=== PATIENT | female | born 1970 | race African-American/Black ===

== ENCOUNTER 2017-05-06 15:10 | Emergency (ER) | payer OTHER ==
[2017-05-06 15:16] VITALS: BP 122/60; PULSE 60; TEMP 98.6; BMI 34.7
--- NOTE | 2017-05-06 16:13 | PDOC ---
History of Present Illness - General Chief Complaint: Injury Stated Complaint: LT FOOT INJURY Time Seen by Provider: 05/06/17 15:30 History Source: Patient Exam Limitations: No Limitations - History of Present Illness Initial Comments: 05/06/17 16:16 stubbed toe into wall 2 days ago, c/o pain and swelling Occurred: reports: just prior to arrival Pain Location: reports: none Past History - Travel Traveled outside of the country in the last 30 days: No Close contact w/someone who was outside of country & ill: No - Past Medical History Allergies/Adverse Reactions: Allergies Allergy/AdvReac Type Severity Reaction Status Date / Time No Known Allergies Allergy Verified 05/06/17 15:13 Home Medications: Ambulatory Orders NK [No Known Home Medication] 03/29/16 Other medical history: denies - Immunization History Immunization Up to Date: Yes - Psycho/Social/Smoking Cessation Hx Anxiety: No Suicidal Ideation: No Smoking History: Never smoked Number of Cigarettes Smoked Daily: 0 Cigars Per Day: 0 Hx Alcohol Use: No Drug/Substance Use Hx: No Review of Systems - Review of Systems Able to Perform ROS?: Yes Is the patient limited Kyrgyz proficient: Yes Constitutional: Yes: Symptoms Reported, See HPI, Malaise HEENTM: No: Symptoms Reported Musculoskeletal: Yes: Symptoms Reported, See HPI, Other (pain and swelling ) Integumentary: Yes: Symptoms Reported, See HPI Neurological: Yes: Symptoms reported All Other Systems: Reviewed and Negative *Physical Exam - Vital Signs Last Vital Signs Temp Pulse Resp BP Pulse Ox 98.6 F 60 18 122/60 98 05/06/17 15:13 05/06/17 15:13 05/06/17 15:13 05/06/17 15:13 05/06/17 15:13 - Physical Exam General Appearance: Yes: Nourished, Appropriately Dressed, Apparent Distress HEENT: positive: ERIN, Normal ENT Inspection, TMs Normal, Pharynx Normal Neck: positive: Supple. 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, Fully Oriented, Alert, Normal Mood/ Affect, Motor Strength 03/23 ED Treatment Course - RADIOLOGY Radiology Studies Ordered: Category Date Time Status TOE(S) LEFT [RAD] Stat Radiology 05/06/17 15:35 Taken Progress Note - Progress Note Progress Note: toe contusion, no fx/ dx- cast shoe placed *DC/Admit/Observation/Transfer Diagnosis at time of Disposition: Contusion of toe of left foot Qualifiers: Encounter type: initial encounter Toe: great toe Damage to nail status: without damage Qualified Code(s): S90.112A - Contusion of left great toe without damage to nail, initial encounter - Discharge Dispostion Disposition: HOME Condition at time of disposition: Stable Admit: No - Patient Instructions Printed Discharge Instructions: DI for Contusion Additional Instructions: Rest, ice to area on and off for 15 minutes 4-6 times a day Avoid heavy lifting or exercise until pain and swelling is resolved or until further directed Keep area highly elevated to reduce swelling Use splints/Jackson wrap as directed Followup with orthopedist in one to 2 days if not improving, if significantly improved may wait one week for followup with orthopedist May use ibuprofen 2-200 mg tablets every 6 hours as needed for pain - Post Discharge Activity Work/School Note: Back to Work
== END 2017-05-06 16:22 | disposition home or self-care (01) ==
LOC: JERFT 15:10
DX: S90.122A Contusion of left lesser toe(s) without damage to nail, initial encounter (principal); W22.01XA Walked into wall, initial encounter; Y93.89 Activity, other specified; Y92.89 Other specified places as the place of occurrence of the external cause; Y99.8 Other external cause status
CPT/HCPCS: 73660-TC; 99281-25

== ENCOUNTER 2017-12-10 16:58 | Emergency (ER) | payer OTHER ==
[2017-12-10 17:09] VITALS: BP 129/65; PULSE 67; TEMP 99.5; BMI 35.5
--- NOTE | 2017-12-10 17:09 | PDOC ---
Rapid Medical Evaluation Chief Complaint: Cold Symptoms Time Seen by Provider: 12/10/17 17:05 Medical Evaluation: Allergies Allergy/AdvReac Type Severity Reaction Status Date / Time No Known Allergies Allergy Verified 12/10/17 17:05 12/10/17 17:05 The patient presents with a chief complaint of: [Chills, cough, fever] I have performed a brief in-person evaluation of this patient. Pertinent physical exam findings: vss, [Lungs clear, RRR, abdoman soft, nontender, nondistended. ] I have ordered the following: [Nothing. ] The patient will proceed to the ED for further evaluation. Discharge Disposition - Diagnosis Fever Qualifiers: Fever type: unspecified Qualified Code(s): R50.9 - Fever, unspecified - Referrals - Patient Instructions - Post Discharge Activity
--- NOTE | 2017-12-10 17:31 | PDOC ---
History of Present Illness - General Chief Complaint: Cold Symptoms Stated Complaint: COLD SYMPTOMS Time Seen by Provider: 12/10/17 17:05 History Source: Patient Exam Limitations: No Limitations - History of Present Illness Initial Comments: 12/10/17 17:26 Patient is a 47 y/o female with no significant medical history, fever, cough, generalized pain. 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 Timing/Duration: reports: other (sunday at 2 pm. ) Severity: reports: moderate Possible Cause: Yes: illness exposure Modifying Factors: improves with: coughing Associated Symptoms: reports: cough, fever/chills Past History - Past Medical History Allergies/Adverse Reactions: Allergies Allergy/AdvReac Type Severity Reaction Status Date / Time No Known Allergies Allergy Verified 12/10/17 17:05 Home Medications: Ambulatory Orders Oseltamivir Phosphate [Tamiflu -] 75 mg PO BID #10 capsule 12/10/17 COPD: No - Immunization History Immunization Up to Date: Yes - Suicide/Smoking/Psychosocial Hx Smoking History: Never smoked Have you smoked in the past 12 months: No Number of Cigarettes Smoked Daily: 0 Cigars Per Day: 0 Information on smoking cessation initiated: No Hx Alcohol Use: No Drug/Substance Use Hx: No Substance Use Type: None Review of Systems - Review of Systems Constitutional: Yes: Chills, Fever HEENTM: No: Symptoms Reported Respiratory: Yes: Cough Cardiac (ROS): No: Symptoms Reported ABD/GI: No: Symptoms Reported : No: Symptoms Reported Musculoskeletal: No: Symptoms Reported Integumentary: No: Symptoms Reported, Erythema, Rash Neurological: No: Symptoms reported Hematologic/Lymphatic: No: Symptoms Reported All Other Systems: Reviewed and Negative *Physical Exam - Vital Signs Last Vital Signs Temp Pulse Resp BP Pulse Ox 99.5 F 67 18 129/65 100 12/10/17 17:05 12/10/17 17:05 12/10/17 17:05 12/10/17 17:05 12/10/17 17:05 - Physical Exam General Appearance: Yes: Appropriately Dressed. No: Apparent Distress HEENT: positive: ERIN, Normal ENT Inspection, Normal Voice, Symmetrical, TMs Normal, Pharynx Normal Neck: positive: Trachea midline. negative: Tender, Lymphadenopathy (R), Lymphadenopathy (L), Tender lateral, Tender midline Respiratory/Chest: positive: Lungs Clear, Normal Breath Sounds. negative: Respiratory Distress, Accessory Muscle Use Cardiovascular: positive: Regular Rhythm, Regular Rate Gastrointestinal/Abdominal: positive: Normal Bowel Sounds, Soft. negative: Tender Lymphatic: negative: Adenopathy Musculoskeletal: positive: Normal Inspection Integumentary: positive: Normal Color, Dry. negative: Rash Neurologic: positive: Alert, Normal Mood/Affect, Normal Response, Motor Strength 5/5 Medical Decision Making - Medical Decision Making 12/10/17 17:29 A/P : Exposure to influenza, influenza type illness, fever, chills, cough, generalized pain. Will discharge patient on Tamiflu. Treat fever with motrin and tylenol. Increase fluids. 12/10/17 17:30 *DC/Admit/Observation/Transfer Diagnosis at time of Disposition: Influenza-like illness Fever Qualifiers: Fever type: unspecified Qualified Code(s): R50.9 - Fever, unspecified - Discharge Dispostion Disposition: HOME Condition at time of disposition: Stable Admit: No - Prescriptions Prescriptions: Oseltamivir Phosphate [Tamiflu -] 75 mg PO BID #10 capsule - Referrals Referrals: STAFF,NOT ON [Primary Care Provider] - - Patient Instructions Printed Discharge Instructions: Influenza Additional Instructions: Increase fluids Please knowthat you are highly contagious. Treat the fever with motrin or tylenol. If symptoms worsen , fainting, inability to eat or drink return to the ER. - Post Discharge Activity Forms/Work/School Notes: Back to Work
== END 2017-12-10 19:27 | disposition home or self-care (01) ==
LOC: JERFT 16:58
DX: J11.1 Influenza due to unidentified influenza virus with other respiratory manifestations (principal)
CPT/HCPCS: 99281-25

== ENCOUNTER 2017-12-15 10:07 | Emergency (ER) | payer OTHER ==
[2017-12-15 10:14] VITALS: BP 107/74; PULSE 57; TEMP 98.5; BMI 35.0
--- NOTE | 2017-12-15 11:16 | PDOC ---
History of Present Illness - General Chief Complaint: Rash Stated Complaint: RASH (ALLERGIC RXN) History Source: Patient Exam Limitations: No Limitations - History of Present Illness Initial Comments: 12/15/17 11:34 Patient was seen here 5 days ago and was found to be positive for flu. She was prescribed at that time Tamiflu. She picked it up on Sunday and started the doses for Sunday, Sunday, . night she noted that her right arm was having hives and itching. Denies any further fevers. Feels better in regards to the flu. However she noted this rash and stopped taking the Tamiflu on night. Denies any numbness, tingling, bleeding, weeping. Noted to only have the hives from the upper arm to the hand. There is some minor swelling. There is some redness. Past History - Past Medical History Allergies/Adverse Reactions: Allergies Allergy/AdvReac Type Severity Reaction Status Date / Time No Known Allergies Allergy Verified 12/15/17 10:14 Home Medications: Ambulatory Orders Oseltamivir Phosphate [Tamiflu -] 75 mg PO BID #10 capsule 12/10/17 Diphenhydramine HCl [Benadryl -] 25 mg PO Q6H #28 capsule 12/15/17 COPD: No - Immunization History Immunization Up to Date: Yes - Suicide/Smoking/Psychosocial Hx Smoking History: Never smoked Have you smoked in the past 12 months: No Number of Cigarettes Smoked Daily: 0 Cigars Per Day: 0 Hx Alcohol Use: No Drug/Substance Use Hx: No Substance Use Type: None Review of Systems - Review of Systems Able to Perform ROS?: Yes Comments:: 12/15/17 11:36 General statement: Hematology: neg history of bleeding/blood thinners Skin: Neg for lesions, rash, bruising. HEENT: Neg symptoms Respiratory: Neg SOB or difficulty in breathing Cardiac: Neg chest pain GI: Neg pain, n/v : Neg problems on voiding MS: Neg for joint pain/stiffness, no edema Neuro: Neg for LOC, weakness, Endocrine: Neg for excess thirst/hunger, cold/heat intolerance, excess sweating Allergies: Neg for allergies now going to label Tamiflu as an ALLERGY *Physical Exam - Vital Signs Last Vital Signs Temp Pulse Resp BP Pulse Ox 98.5 F 57 L 18 107/74 98 12/15/17 10:11 12/15/17 10:11 12/15/17 10:11 12/15/17 10:11 12/15/17 10:11 - Physical Exam Comments: 12/15/17 11:37 General Appearance: This well appearing V/S: hemodynamically stable, afebrile Skin: WNL of pt's skin color, no signs of pallor, mottling, cyanosis with the exception of her right arm from her shoulder down to her wrist noted to be blotchy, red, hives. She has been scratching and noted to have some scratch squires. There is no bleeding, weeping, pustules. She is able to move all of her extremities. Good hand grasp. No numbness or tingling. Head:symmetrical Eyes: EOM's intact, PERRLA Ears: denies pain Nose: patent Throat: lips, teeth, gums, tongue, buccal mucos pink and moist Lungs: Chest symmetry equal. Cap refill <3 seconds. Lung sounds clear Cardiac: PMI at R 4MCL space, pos S1 and S2, regular rate. Abdomen: Soft, round, nontender : Not observed Muscularskeletal: Gait steady, ambulated in to ER, no edema +PMS Neuro: AAOx3, cognitively intact, speech clear and appropriate. Medical Decision Making - Medical Decision Making 12/15/17 11:37 Patient was seen and examined. Patient noted to have a rash and assume that this is due to her Tamiflu that she recently was put on. She had taken 3 days worth of Tamiflu. She has now stopped it and I have explained that she should use Benadryl for the itching and hives. I have updated her ALLERGY is to be noted to have Tamiflu ALLERGY. *DC/Admit/Observation/Transfer Diagnosis at time of Disposition: Rash - Discharge Dispostion Disposition: HOME Condition at time of disposition: Good Admit: No - Prescriptions Prescriptions: Diphenhydramine HCl [Benadryl -] 25 mg PO Q6H #28 capsule - Referrals Referrals: ON STAFF,NOT [Primary Care Provider] - - Patient Instructions Printed Discharge Instructions: DI for Hives Additional Instructions: Discharge instructions 1. Please follow up with your primary physician within the next few days and explain that you have been seen here in the Emergency Room. 2. If you experience any worsening of symptoms, please return to the ER 3. Rest, take benadryl as needed for skin itch 4. Drink plenty of water - Post Discharge Activity
== END 2017-12-15 11:20 | disposition home or self-care (01) ==
LOC: JERFT 10:07
DX: L50.0 Allergic urticaria (principal); T37.5X5A Adverse effect of antiviral drugs, initial encounter
CPT/HCPCS: 99281-25

== ENCOUNTER 2017-12-31 20:50 | Emergency (ER) | payer OTHER ==
[2017-12-31 21:06] VITALS: BP 114/90; PULSE 83; TEMP 99.8; BMI 34.7
--- NOTE | 2017-12-31 21:07 | PDOC ---
Rapid Medical Evaluation Time Seen by Provider: 12/31/17 21:01 Medical Evaluation: Allergies Allergy/AdvReac Type Severity Reaction Status Date / Time oseltamivir [From Tamiflu] AdvReac Mild Rash Verified 12/15/17 11:39 12/31/17 21:02 The patient presents with a chief complaint of: Was diagnosed with flu three weeks ago, Now with fever, sore throat, headache, diarrhea, vomiting and joint pains. No meds prior to arrival. Afebrile. No n/v/d. Temp 99.8, took Aleve at 7 pm. I have performed a brief in-person evaluation of this patient. Pertinent physical exam findings:Lungs clear, dry oral mucus membranes, other physical examination is unremarkable. I have ordered the following: rapid strep. The patient will proceed to the ED for further evaluation. Discharge Disposition - Diagnosis Fever - Referrals - Patient Instructions - Post Discharge Activity
[2017-12-31] MEDS ORDERED: SODIUM CHLORIDE 1,000 ML IV STA (22:00)
[2017-12-31] MEDS ORDERED: ONDANSETRON 4 MG/2 ML VIAL IVPUSH ONE (22:00)
[2017-12-31] MEDS ORDERED: KETOROLAC TROMETHAMINE 30 MG/1 ML VIAL IVPUSH ONE (22:00)
--- NOTE | 2017-12-31 22:01 | PDOC ---
History of Present Illness - General Chief Complaint: Nausea/Vomiting Stated Complaint: BODY PAIN Time Seen by Provider: 12/31/17 21:01 History Source: Patient - History of Present Illness Initial Comments: 12/31/17 22:21 47 year old female with generalized bodyaches, joint pain,NVD, fever/chills, throat pain since this afternoon. patient recently seen in the ED for flu like symptoms started on tamiflu with allergic reaction stopped after 3 days of use. Patient denies chest pain, headache, abdominal pain, urinary symptoms, COugh, URI symptoms. Past History - Past Medical History Allergies/Adverse Reactions: Allergies Allergy/AdvReac Type Severity Reaction Status Date / Time oseltamivir [From Tamiflu] AdvReac Mild Rash Verified 12/31/17 21:06 Home Medications: Ambulatory Orders Oseltamivir Phosphate [Tamiflu -] 75 mg PO BID #10 capsule 12/10/17 Diphenhydramine HCl [Benadryl -] 25 mg PO Q6H #28 capsule 12/15/17 COPD: No - Immunization History Immunization Up to Date: Yes - Suicide/Smoking/Psychosocial Hx Smoking History: Never smoked Have you smoked in the past 12 months: No Number of Cigarettes Smoked Daily: 0 Cigars Per Day: 0 Information on smoking cessation initiated: No Hx Alcohol Use: No Drug/Substance Use Hx: No Substance Use Type: None Review of Systems - Review of Systems Able to Perform ROS?: Yes Is the patient limited Sinhala proficient: No Constitutional: Yes: Chills, Fever HEENTM: Yes: Throat Pain. No: Symptoms Reported, See HPI, Eye Pain, Blurred Vision, Tearing, Recent change in vision, Double Vision, Cataracts, Ear Pain, Ocular Prothesis, Ear Discharge, Nose Pain, Nose Congestion, Tinnitus, Nose Bleeding, Hearing Loss, Throat Swelling, Mouth Pain, Dental Problems, Difficulty Swallowing, Mouth Swelling, Other Respiratory: No: Symptoms reported, See HPI, Cough, Orthopnea, Shortness of Breath, SOB with Exertion, SOB at Rest, Stridor, Wheezing, Productive cough, Hemoptysis, Other Cardiac (ROS): No: Symptoms Reported, See HPI, Chest Pain, Edema, Irregular Heart Rate, Lightheadedness, Palpitations, Syncope, Chest Tightness, Other ABD/GI: Yes: Diarrhea, Nausea, Vomiting : No: Symptoms Reported, See HPI, Burning, Dysuria, Discharge, Frequency, Flank Pain, Hematuria, Incontinence, Pain, Urgency, Testicular Mass, Testicular Swelling, Lesions, Testicular Pain, Other Neurological: No: Symptoms reported, See HPI, Headache, Numbness, Paresthesia, Pre-Existing Deficit, Seizure, Tingling, Tremors, Weakness, Unsteady Gait, Ataxia, Dizziness, Other *Physical Exam - Vital Signs Last Vital Signs Temp Pulse Resp BP Pulse Ox 99.8 F H 83 20 114/90 98 12/31/17 21:01 12/31/17 21:01 12/31/17 21:01 12/31/17 21:01 12/31/17 21:01 - Physical Exam General Appearance: Yes: Appropriately Dressed, Mild Distress Respiratory/Chest: positive: Lungs Clear, Normal Breath Sounds Gastrointestinal/Abdominal: positive: Normal Bowel Sounds, Soft. negative: Tender Musculoskeletal: positive: Normal Inspection. negative: CVA Tenderness Extremity: positive: Normal Capillary Refill, Normal Inspection, Normal Range of Motion Integumentary: positive: Normal Color, Dry, Warm Neurologic: positive: Fully Oriented, Alert, Normal Mood/Affect Heart Score/ECG Review - ECG Intrepretation Rhythm: Regular Rhythm Comment:: 01/01/18 07:18 sinus rhythm with short VA : 63 bpm, nonspecific T wave prolonged Qt ED Treatment Course - LABORATORY CBC & Chemistry Diagram: 12/31/17 21:58 12/31/17 21:58 - ADDITIONAL ORDERS Additional order review: 12/31/17 21:13 Group A Strep Rapid Antigen - Final Throat Medical Decision Making - Medical Decision Making 12/31/17 21:00 A: viral gastroenteritis P: CBC CMp UA IVF pain control 12/31/17 23:38 patient reports feeling better. will d/c home with supportive care. *DC/Admit/Observation/Transfer Diagnosis at time of Disposition: Viral gastroenteritis Fever Qualifiers: Fever type: unspecified Qualified Code(s): R50.9 - Fever, unspecified - Discharge Dispostion Disposition: HOME - Referrals - Patient Instructions Printed Discharge Instructions: DI for Vomiting -- Adult Additional Instructions: drink plenty of fluids. follow up with your doctor as soon as possible. take tylenol/ ibuprofen every 6 hours as needed for bodyaches/ fever return to the ED if symptoms worsen. - Post Discharge Activity Forms/Work/School Notes: Back to Work
[2017-12-31] MEDS ORDERED: ONDANSETRON 4 MG/2 ML VIAL ONE (22:07)
[2017-12-31] MEDS ORDERED: KETOROLAC TROMETHAMINE 30 MG/1 ML VIAL ONE (22:07)
[2017-12-31] MEDS ORDERED: ACETAMINOPHEN 325 MG TABLET (FP) PO ONE (22:21)
[2017-12-31 22:26] LABS: BASO % 0.2 % (0-2.0); EOS % 0.3 % (0-4.5); HEMATOCRIT 37.7 % (32.4-45.2); HEMOGLOBIN 12.5 GM/dL (10.7-15.3); LYMPH % 7.5 % (8-40); MCHC 33.3 g/dl (32.0-36.0); MEAN CELL VOLUME 81.2 fl (80-96); MEAN PLT VOLUME 9.3 fl (7.5-11.1); MONO % 7.9 % (3.8-10.2); NEUT % 84.1 % (42.8-82.8); PLATELET COUNT 250 K/MM3 (134-434); RBC 4.64 M/mm3 (3.60-5.2); RDW 13.6 % (11.6-15.6)
[2017-12-31 22:49] LABS: ALBUMIN 3.7 g/dl (3.4-5.0); ALK PHOS 110 U/L (45-117); ANION GAP 9 (8-16); BLOOD UREA NITROGEN 13 mg/dL (7-18); CALCIUM 8.1 mg/dL (8.5-10.1); CHLORIDE 102 mmol/L (98-107); CO2 23 mmol/L (21-32); CREATININE 0.9 mg/dL (0.55-1.02); GLUCOSE,RANDOM 87 mg/dL (74-106); LIPASE 80 U/L (73-393); POTASSIUM 4.1 mmol/L (3.5-5.1); SGOT/AST 23 U/L (15-37); SGPT/ALT 28 U/L (12-78); SODIUM 134 mmol/L (136-145); TOT PROT 7.8 g/dl (6.4-8.2)
[2017-12-31 23:30] LABS: URINE APPEARANCE CLEAR; URINE BILIRUBIN NEGATIVE (NEGATIVE); URINE BLOOD 2+ (NEGATIVE); URINE COLOR YELLOW; URINE GLUCOSE (UA) NEGATIVE (NEGATIVE); URINE KETONE 1+ (NEGATIVE); URINE LEUK ESTERASE TRACE (NEGATIVE); URINE NITRITE NEGATIVE (NEGATIVE); URINE PROTEIN NEGATIVE (NEGATIVE); URINE UROBILINOGEN NEGATIVE mg/dL (0.2-1.0)
[2017-12-31 23:33] LABS: EPI CELLS RARE /HPF (FEW); URINE MUCUS RARE
--- NOTE | 2018-01-01 16:42 | EKG ---
Test Reason : Blood Pressure : / mmHG Vent. Rate : 063 BPM Atrial Rate : 063 BPM P-R Int : 110 ms QRS Dur : 076 ms QT Int : 512 ms P-R-T Axes : 020 -04 015 degrees QTc Int : 523 ms SINUS RHYTHM WITH SHORT [place] LOW VOLTAGE QRS NONSPECIFIC T WAVE ABNORMALITY PROLONGED QT ABNORMAL ECG NO PREVIOUS ECGS AVAILABLE Confirmed by MD Marvin, John ([id number]) on 01/01/2018 4:42:02 PM Referred By: Confirmed By:John Wong MD
== END 2017-12-31 23:47 | disposition home or self-care (01) ==
LOC: JER 20:50
PROC: 3E0333Z Introduction of Anti-inflammatory into Peripheral Vein, Percutaneous Approach (ICD-10-PCS; principal; 2017-12-31)
PROC: 3E033GC Introduction of Other Therapeutic Substance into Peripheral Vein, Percutaneous Approach (ICD-10-PCS; 2017-12-31)
DX: A08.4 Viral intestinal infection, unspecified (principal); B97.89 Other viral agents as the cause of diseases classified elsewhere
CPT/HCPCS: 36415; 80053; 81003; 81015; 83690; 84703; 85025; 87070; 87430; 93005; 93010; 99282-25

== ENCOUNTER 2019-04-30 12:14 | Observation (INO) | payer OTHER ==
--- NOTE | 2019-04-30 12:16 | PDOC ---
Rapid Medical Evaluation Time Seen by Provider: 04/30/19 12:15 Medical Evaluation: Allergies Allergy/AdvReac Type Severity Reaction Status Date / Time oseltamivir [From Tamiflu] AdvReac Mild Rash Verified 12/31/17 21:06 04/30/19 12:16 I have performed a brief in-person evaluation of this patient. The patient presents with a chief complaint of: Chest pain, dizziness Pertinent physical exam findings: HR-49 Lungs CTAB. RRR. No m/r/g. No focal deficits. Gait steady. I have ordered the following: cardiac w/u The patient will proceed to the ED for further evaluation. 04/30/19 12:22 Discharge Disposition - Diagnosis Chest pain - Referrals - Patient Instructions - Post Discharge Activity
[2019-04-30 13:05] LABS: BASO % 0.8 % (0-2.0); EOS % 1.9 % (0-4.5); HEMATOCRIT 35.1 % (32.4-45.2); HEMOGLOBIN 11.6 GM/dL (10.7-15.3); LYMPH % 23.3 % (8-40); MCH 27.5 pg (25.7-33.7); MCHC 33.2 g/dl (32.0-36.0); MEAN CELL VOLUME 82.9 fl (80-96); MEAN PLT VOLUME 9.4 fl (7.5-11.1); MONO % 10.7 % (3.8-10.2); NEUT % 63.3 % (42.8-82.8); PLATELET COUNT 244 K/MM3 (134-434); RBC 4.23 M/mm3 (3.60-5.2); RDW 14.8 % (11.6-15.6); WHITE BLOOD COUNT 7.9 K/mm3 (4.0-10.0)
[2019-04-30 13:13] LABS: INR 1.07 (0.83-1.09); PROTHROMBIN TIME (PATIENT) 12.6 SEC (9.7-13.0)
[2019-04-30 13:16] LABS: URINE APPEARANCE CLEAR; URINE BILIRUBIN NEGATIVE (NEGATIVE); URINE COLOR YELLOW; URINE GLUCOSE (UA) NEGATIVE (NEGATIVE); URINE KETONE NEGATIVE (NEGATIVE); URINE LEUK ESTERASE NEGATIVE (NEGATIVE); URINE NITRITE NEGATIVE (NEGATIVE); URINE PROTEIN NEGATIVE (NEGATIVE); URINE UROBILINOGEN 0.2 mg/dL (0.2-1.0)
[2019-04-30 13:31] LABS: ALBUMIN 3.4 g/dl (3.4-5.0); ALK PHOS 98 U/L (45-117); ANION GAP 3 MMOL/L (8-16); BILIRUBIN,TOTAL 0.7 mg/dL (0.2-1); BLOOD UREA NITROGEN 11.1 mg/dL (7-18); CALCIUM 8.5 mg/dL (8.5-10.1); CHLORIDE 107 mmol/L (98-107); CO2 26 mmol/L (21-32); CREATININE 0.9 mg/dL (0.55-1.3); GLUCOSE,RANDOM 83 mg/dL (74-106); MAGNESIUM 2.2 mg/dL (1.8-2.4); POTASSIUM 4.1 mmol/L (3.5-5.1); SGOT/AST 20 U/L (15-37); SGPT/ALT 26 U/L (13-61); SODIUM 136 mmol/L (136-145); TOT PROT 7.4 g/dl (6.4-8.2)
[2019-04-30 13:44] LABS: HCG,QUALITATIVE URINE Negative
[2019-04-30] MEDS ORDERED: ONDANSETRON 4 MG/2 ML VIAL IVPB ONE (13:51)
--- NOTE | 2019-04-30 13:58 | PDOC ---
History of Present Illness - General Chief Complaint: Chest Pain Stated Complaint: CHEST PAIN Time Seen by Provider: 04/30/19 12:15 - History of Present Illness Initial Comments: 04/30/19 13:52 PCP: Dr. Tom. Patient is a 48 year old female came in to the ED with the chief complaint of dizziness and chest pain. As per the patient, she had dizziness a week ago, fell and landed on her right hand, didn't lose consciousness. Her son heard a loud noise, saw her on the floor, helped her get up and lay on bed. Since then she has been getting dizziness on/off, associated with headache and chronic neck pain. No vertigo. She states she started having left sided chest pain 5 days ago, located in the left side, 8-9/10 in intensity, sharp/pricking type, non radiating, associated with shortness of breath. Chest pain usually starts while at rest, lasting for about 15-20 mins. It has been progressively getting worse, duration has been increasing along with shortness of breath even when she walks few steps, associated with nausea. She usually exercises 4 times/day; does boot camp once a week. However due to chest pain/sob, she hasn't been able to exercise. She called her PCP today who recommended her to come to the ED for evaluation. Denies fever, chills, rigors, sweating, no LOC, no seizures. Had lose stool 3 episodes overnight, watery, no blood. Bladder habit normal. Past medical history: None Allergies: Tamiflu Past surgical history: Tubal ligation Social Lives at home with her and kids Smoking:Denies Alcohol: Occasional, last drink 4 days ago. 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 Past History - Travel Traveled outside of the country in the last 30 days: No Close contact w/someone who was outside of country & ill: No - Past Medical History Allergies/Adverse Reactions: Allergies Allergy/AdvReac Type Severity Reaction Status Date / Time oseltamivir [From Tamiflu] AdvReac Mild Rash Verified 04/30/19 12:16 Home Medications: Ambulatory Orders NK [No Known Home Medication] 04/30/19 COPD: No - Immunization History Immunization Up to Date: Yes - Suicide/Smoking/Psychosocial Hx Smoking History: Never smoked Have you smoked in the past 12 months: No Number of Cigarettes Smoked Daily: 0 Cigars Per Day: 0 Hx Alcohol Use: No Drug/Substance Use Hx: No Substance Use Type: None Review of Systems - Review of Systems Able to Perform ROS?: Yes Is the patient limited [place]ian proficient: No *Physical Exam - Vital Signs Last Vital Signs Temp Pulse Resp BP Pulse Ox 98.2 F 53 L 16 101/61 100 04/30/19 12:20 04/30/19 12:20 04/30/19 12:20 04/30/19 12:20 04/30/19 13:01 - Physical Exam Comments: 04/30/19 14:02 General: Patient is sitting comfortably in bed, awake, alert, oriented x 3, in no acute distress HEENT: EOM intact, no pallor or icterus. Chest: B/L lungs clear, no added sounds CVS: Sinus bradycardia, Regular rate and rhythm, no added sounds Abdomen: Soft, non tender, no organomegaly, BS + Ext: No peripheral edema. Neuro: No facial droop, grossly normal. ED Treatment Course - LABORATORY CBC & Chemistry Diagram: 04/30/19 12:30 04/30/19 12:30 - ADDITIONAL ORDERS Additional order review: Laboratory Results 04/30/19 04/30/19 04/30/19 13:03 12:30 12:30 WBC RBC Hgb Hct MCV MCH MCHC RDW Plt Count MPV Absolute Neuts (auto) Neutrophils % Lymphocytes % Monocytes % Eosinophils % Basophils % Nucleated RBC % PT with INR 12.60 INR 1.07 Sodium 136 Potassium 4.1 Chloride 107 Carbon Dioxide 26 Anion Gap 3 L BUN 11.1 Creatinine 0.9 Est GFR (CKD-EPI)AfAm 87.63 Est GFR (CKD-EPI)NonAf 75.61 Random Glucose 83 Calcium 8.5 Magnesium 2.2 Total Bilirubin 0.7 AST 20 ALT 26 Alkaline Phosphatase 98 Creatine Kinase 157 Troponin I < 0.02 Total Protein 7.4 Albumin 3.4 Urine Color Yellow Urine Appearance Clear Urine pH 8.0 D Ur Specific [place] 1.013 Urine Protein Negative Urine Glucose (UA) Negative Urine Ketones Negative Urine Blood Negative Urine Nitrite Negative Urine Bilirubin Negative Urine Urobilinogen 0.2 Ur Leukocyte Esterase Negative Urine HCG, Qual Negative 04/30/19 12:30 WBC 7.9 RBC 4.23 Hgb 11.6 Hct 35.1 MCV 82.9 MCH 27.5 MCHC 33.2 RDW 14.8 Plt Count 244 MPV 9.4 Absolute Neuts (auto) 5.0 Neutrophils % 63.3 D Lymphocytes % 23.3 D Monocytes % 10.7 H Eosinophils % 1.9 D Basophils % 0.8 D Nucleated RBC % 0 PT with INR INR Sodium Potassium Chloride Carbon Dioxide Anion Gap BUN Creatinine Est GFR (CKD-EPI)AfAm Est GFR (CKD-EPI)NonAf Random Glucose Calcium Magnesium Total Bilirubin AST ALT Alkaline Phosphatase Creatine Kinase Troponin I Total Protein Albumin Urine Color Urine Appearance Urine pH Ur Specific [place] Urine Protein Urine Glucose (UA) Urine Ketones Urine Blood Urine Nitrite Urine Bilirubin Urine Urobilinogen Ur Leukocyte Esterase Urine HCG, Qual 04/30/19 12:30 RBC 4.23 MCV 82.9 MCHC 33.2 RDW 14.8 MPV 9.4 Neutrophils % 63.3 D Lymphocytes % 23.3 D Monocytes % 10.7 H Eosinophils % 1.9 D Basophils % 0.8 D Medical Decision Making - Medical Decision Making 04/30/19 13:20 Patient is a 48 year old female presented to the ED with the chief complaint of chest pain, sob and dizziness x 1 week leading to fall, didn't lose consciouness , no seizures. Differential diagnosis : Symptomatic bradycardia, ND, Vasovagal, orthostatics, Costochondritis CBC, CMP, UA, urine for preg test pending. 14:[address] Tolentino (cardiology) who recommends overnight admission in Tele. Echo ordered. Upon re-assessing the patient, she is having severe chest pain, located the left side, 10/10, pricking in nature. Will give Aspirin 162 mg, Sublingual nitro and Morphine 2 mg. 14:[address] Freitas who accepts the pt for tele/obs 04/30/19 15:[address] Tolentino. Differential Diagnosis includes but not limited to : PE, Lyme, Thyroid disease. Will send D-Dimer, Lyme titres, TSH 16:30 CTA negative for PE. Normal TSH. Lyme titres pending. 04/30/19 18:08 Patient complaining of chest pain. Rolando give Torodol. (Avoided Morphine due to low BP 101/50 mmHg). *DC/Admit/Observation/Transfer Diagnosis at time of Disposition: Chest pain - Referrals - Patient Instructions - Post Discharge Activity
[2019-04-30] MEDS ORDERED: ONDANSETRON 4 MG/2 ML VIAL ONE (14:01)
[2019-04-30] MEDS ORDERED: NITROGLYCERIN SUBLINGUAL 1/150 0.4 MG TAB SL ONE (14:22)
[2019-04-30] MEDS ORDERED: morphine CARPU-JECT 2 MG/1 ML DISP.SYRIN IVPUSH ONE (14:22)
[2019-04-30] MEDS ORDERED: MORPHINE SULFATE 2 MG/ML VIAL ONE (14:32)
[2019-04-30] MEDS: ASPIRIN COATED 81 MG TABLET.EC PO SCH (14:43)
--- NOTE | 2019-04-30 15:22 | PDOC ---
Documentation entered by Lynn Hannon SCRIBE, acting as scribe for Merlin Lazo MD. Merlin Lazo MD: This documentation has been prepared by the roloibe, Lynn Hannon SCRIBE, under my direction and personally reviewed by me in its entirety. I confirm that the documentation accurately reflects all work, treatment, procedures, and medical decision making performed by me. Attending Attestation - Resident Resident Name: Yajaira Driscoll - ED Attending Attestation I have performed the following: I have examined & evaluated the patient, The case was reviewed & discussed with the resident, I agree w/resident's findings & plan, Exceptions are as noted - HPI HPI: 04/30/19 14:36 The patient is a 48-year-old female, with no past medical history, who presents to the ED for chest pain and dizziness. Patient reports that the dizziness began 1 week ago. Pt describes feeling lightheaded, denies room spinning. Pt denies LOC but states that she fell during one of her dizzy spells. She denies any head trauma. Since then the dizziness has been intermittent. Over the past 5 days pt has also begun to experience LT-sided chest pain that she describes as sharp/pricking in sensation, 8-9/10 in severity, nonradiating. Her symptoms have progressively worsened over the past few days and are now associated with shortness of breath on exertion, nausea, and diarrhea. She reports 3 episodes of loose, watery stools; no blood noted. The patient denies fevers, chills, vomiting, diarrhea, or abdominal pain. She denies any palpitations. Allergies: Oseltamivir - Physicial Exam PE: 04/30/19 14:37 GENERAL: Awake, alert, and fully oriented, in no acute distress. HEAD: No signs of trauma EYES: PERRLA, EOMI, sclera anicteric, conjunctiva clear ENT: Auricles normal inspection, hearing grossly normal, nares patent, oropharynx clear without exudates. Moist mucosa NECK: Nontender, no stepoffs, Normal ROM, supple, no lymphadenopathy, JVD, or masses LUNGS: Breath sounds equal, clear to auscultation bilaterally. No wheezes, and no crackles HEART: Regular rate and rhythm, normal S1 and S2, no murmurs, rubs or gallops ABDOMEN: Soft, nontender, normoactive bowel sounds. No guarding, no rebound. No masses EXTREMITIES: Normal range of motion, no edema. No clubbing or cyanosis. No cords, erythema, or tenderness NEUROLOGICAL: Cranial nerves II through XII intact. 5/5 strength and sensation in all extremities, Normal speech, normal cerebellar function SKIN: Warm, Dry, normal turgor, no rashes or lesions noted. - Medical Decision Making 04/30/19 15:21 48 F with chest pain and lightheadedness. EKG shows sinus bradycardia, pt with borderline BP in ED. Possible symptomatic bradycardia. No signs of ischemia on EKG. Possible PE, though pt without any risk factors. - Labs, trop, ddimer - CXR - CTA chest if indicated - Cards consult for bradycardia - Admit tele
--- NOTE | 2019-04-30 15:30 | EKG ---
Test Reason : Blood Pressure : / mmHG Vent. Rate : 049 BPM Atrial Rate : 049 BPM P-R Int : 124 ms QRS Dur : 078 ms QT Int : 506 ms P-R-T Axes : 035 -01 010 degrees QTc Int : 457 ms SINUS BRADYCARDIA NONSPECIFIC T WAVE ABNORMALITY ABNORMAL ECG WHEN COMPARED WITH ECG OF 31-DEC-2017 22:23, QT HAS SHORTENED Confirmed by SULEIMAN MCDONALD MD ([id number]) on 04/30/2019 3:29:51 PM Referred By: Confirmed By:SULEIMAN MCDONALD MD
--- NOTE | 2019-04-30 17:21 | CON.CARD ---
Consult Consult Specialty:: Cardiology Reason for Consultation:: Chest Pain. Bradycardia - History of Present Illness Chief Complaint: Chest pain History of Present Illness: This is a 48 year old female who is athletic, she does strenuous "boot camp" work outs.m She has no significant PMH and is on no medications. She presents now to the ED with chest pain and also reports dizziness. The dizziness began 1 week ago. Pt describes feeling lightheaded, denies room spinning. Pt denies LOC but states that she fell during one of her dizzy spells. Over the past 5 days pt has also begun to experience LT-sided chest pain that she describes as sharp/ pricking in sensation, 8-9/10 in severity, non radiating. Her symptoms have progressively worsened over the past few days and are now associated with shortness of breath on exertion, nausea, and diarrhea. She reports 3 episodes of loose, watery stools Head CT - negative for acute pathology Chest CT - negative for acute pathology EKG shows Sinus bradycardia at 49 BPM with low QRS voltage, normal intervals, normal axis, and NSSTTW changes. - Alcohol/Substance Use Hx Alcohol Use: No - Smoking History Smoking history: Never smoked Have you smoked in the past 12 months: No Aproximately how many cigarettes per day: 0 Home Medications - Allergies Allergies/Adverse Reactions: Allergies Allergy/AdvReac Type Severity Reaction Status Date / Time oseltamivir [From Tamiflu] AdvReac Mild Rash Verified 04/30/19 12:16 - Home Medications Home Medications: Ambulatory Orders NK [No Known Home Medication] 04/30/19 Review of Systems Unable to obtain ROS, reason: As Per HPI Vital Signs: Vital Signs Temperature 98.2 F 04/30/19 12:20 Pulse Rate 45 L 04/30/19 15:06 Respiratory Rate 20 04/30/19 15:06 Blood Pressure 119/94 04/30/19 15:06 O2 Sat by Pulse Oximetry (%) 100 04/30/19 15:06 Constitutional: Yes: No Distress Eyes: Yes: WNL, Occular Prosthesis Neck: Yes: WNL Respiratory: Yes: CTA Bilaterally Gastrointestinal: Yes: Soft Cardiovascular: Yes: Regular Rate and Rhythm Heart Sounds: Yes: S1, S2 Extremities: Yes: WNL Edema: No Neurological: Yes: Alert, Oriented - Other Data Labs, Other Data: CBC, BMP 04/30/19 12:30 04/30/19 12:30 INR, PTT INR 1.07 (0.83-1.09) 04/30/19 12:30 Troponin, BNP 04/30/19 12:30 Troponin I < 0.02 Troponin, BNP 04/30/19 12:30 Troponin I < 0.02 Assessment/Plan 48 year old female who is athletic, she does strenuous "boot camp" work outs.m She has no significant PMH and is on no medications. She presents now to the ED with chest pain and also reports dizziness. The dizziness began 1 week ago. Pt describes feeling lightheaded, denies room spinning. Pt denies LOC but states that she fell during one of her dizzy spells. Over the past 5 days pt has also begun to experience LT-sided chest pain that she describes as sharp/pricking in sensation, 8-9/10 in severity, non radiating. Her symptoms have progressively worsened over the past few days and are now associated with shortness of breath on exertion, nausea, and diarrhea. She reports 3 episodes of loose, watery stools Head CT - negative for acute pathology Chest CT - negative for acute pathology EKG shows Sinus bradycardia at 49 BPM with low QRS voltage, normal intervals, normal axis, and NSSTTW changes. Trop neg x1 TSH normal Lyme pending Monitor on Telem Obtain an echocardiogram Obtain an exercise nuclear stress test (once she has ruled out) Will follow with you
[2019-04-30] MEDS ORDERED: KETOROLAC TROMETHAMINE 30 MG/1 ML VIAL IVPUSH ONE (18:08)
[2019-04-30] MEDS ORDERED: KETOROLAC TROMETHAMINE 30 MG/1 ML VIAL ONE (18:10)
--- NOTE | 2019-04-30 18:18 | HP ---
Admitting History and Physical - Primary Care Physician PCP: Napoleon Freitas - Admission History of Present Illness: 48-year-old female, with no past medical history, who presents to the ED for chest pain and dizziness. Patient reports that the dizziness began 1 week ago. Pt describes feeling lightheaded, denies room spinning. Pt denies LOC but states that she fell during one of her dizzy spells. She denies any head trauma. Since then the dizziness has been intermittent. Over the past 5 days pt has also begun to experience LT-sided chest pain that she describes as sharp/ pricking in sensation, 8-9/10 in severity, nonradiating. Her symptoms have progressively worsened over the past few days and are now associated with shortness of breath on exertion, nausea, and diarrhea. She reports 3 episodes of loose, watery stools; no blood noted. - Smoking History Smoking history: Never smoked Have you smoked in the past 12 months: No Aproximately how many cigarettes per day: 0 - Alcohol/Substance Use Hx Alcohol Use: No Home Medications - Allergies Allergies/Adverse Reactions: Allergies Allergy/AdvReac Type Severity Reaction Status Date / Time oseltamivir [From Tamiflu] AdvReac Mild Rash Verified 04/30/19 12:16 - Home Medications Home Medications: Ambulatory Orders NK [No Known Home Medication] 04/30/19 Physical Examination Vital Signs: Vital Signs Temperature 97.9 F 04/30/19 17:26 Pulse Rate 50 L 04/30/19 17:26 Respiratory Rate 14 04/30/19 17:26 Blood Pressure 105/66 04/30/19 17:26 O2 Sat by Pulse Oximetry (%) 100 04/30/19 17:26 Constitutional: Yes: No Distress HENT: Yes: Atraumatic Neck: Yes: Supple Cardiovascular: Yes: Regular Rate and Rhythm Respiratory: Yes: CTA Bilaterally Gastrointestinal: Yes: Normal Bowel Sounds Extremities: Yes: WNL Edema: No Peripheral Pulses WNL: Yes Neurological: Yes: Alert, Oriented Labs: CBC, BMP 04/30/19 12:30 04/30/19 12:30 Problem List - Problems (1) Chest pain Assessment/Plan: tel monitoring fu cardiac profile cardiology consult Code(s): R07.9 - CHEST PAIN, UNSPECIFIED (2) Dizzy Assessment/Plan: better now Code(s): R42 - DIZZINESS AND GIDDINESS Assessment/Plan Laboratory Tests 04/30/19 04/30/19 04/30/19 12:30 12:30 12:30 WBC 7.9 RBC 4.23 Hgb 11.6 Hct 35.1 MCV 82.9 MCH 27.5 MCHC 33.2 RDW 14.8 Plt Count 244 MPV 9.4 Absolute Neuts (auto) 5.0 Neutrophils % 63.3 D Lymphocytes % 23.3 D Monocytes % 10.7 H Eosinophils % 1.9 D Basophils % 0.8 D Nucleated RBC % 0 PT with INR 12.60 INR 1.07 D-Dimer Sodium 136 Potassium 4.1 Chloride 107 Carbon Dioxide 26 Anion Gap 3 L BUN 11.1 Creatinine 0.9 Est GFR (CKD-EPI)AfAm 87.63 Est GFR (CKD-EPI)NonAf 75.61 Random Glucose 83 Calcium 8.5 Magnesium 2.2 Total Bilirubin 0.7 AST 20 ALT 26 Alkaline Phosphatase 98 Creatine Kinase 157 Creatine Kinase Index 0.6 CK-MB (CK-2) < 1.0 Troponin I < 0.02 Total Protein 7.4 Albumin 3.4 TSH 1.09 Urine Color Urine Appearance Urine pH Ur Specific [place] Urine Protein Urine Glucose (UA) Urine Ketones Urine Blood Urine Nitrite Urine Bilirubin Urine Urobilinogen Ur Leukocyte Esterase Urine HCG, Qual 04/30/19 04/30/19 12:30 13:03 WBC RBC Hgb Hct MCV MCH MCHC RDW Plt Count MPV Absolute Neuts (auto) Neutrophils % Lymphocytes % Monocytes % Eosinophils % Basophils % Nucleated RBC % PT with INR INR D-Dimer 511 H Sodium Potassium Chloride Carbon Dioxide Anion Gap BUN Creatinine Est GFR (CKD-EPI)AfAm Est GFR (CKD-EPI)NonAf Random Glucose Calcium Magnesium Total Bilirubin AST ALT Alkaline Phosphatase Creatine Kinase Creatine Kinase Index CK-MB (CK-2) Troponin I Total Protein Albumin TSH Urine Color Yellow Urine Appearance Clear Urine pH 8.0 D Ur Specific [place] 1.013 Urine Protein Negative Urine Glucose (UA) Negative Urine Ketones Negative Urine Blood Negative Urine Nitrite Negative Urine Bilirubin Negative Urine Urobilinogen 0.2 Ur Leukocyte Esterase Negative Urine HCG, Qual Negative Active Medications Generic Name Dose Route Start Last Admin Trade Name Freq PRN Reason Stop Dose Admin Aspirin 162 mg 04/30/19 14:00 04/30/19 14:43 Ecotrin - PO 162 mg DAILY RUPERT Administration Active Medications Generic Name Dose Route Start Last Admin Trade Name Freq PRN Reason Stop Dose Admin Acetaminophen 650 mg 04/30/19 22:56 05/01/19 10:05 Tylenol - PO 650 mg Q6H PRN Administration HEADACHE Aspirin 162 mg 04/30/19 14:00 05/01/19 10:04 Ecotrin - PO 162 mg DAILY RUPERT Administration
[2019-04-30] MEDS ORDERED: MORPHINE SULFATE 2 MG/ML VIAL IVPUSH ONE (23:00)
[2019-04-30] MEDS: ACETAMINOPHEN 325 MG TABLET (FP) PO PRN (23:05)
[2019-05-01] MEDS: ACETAMINOPHEN 325 MG TABLET (FP) PO PRN ×2 (04:15→10:05)
[2019-05-01 07:08] VITALS: BMI 35.2
[2019-05-01 08:56] LABS: BASO % 0.5 % (0-2.0); EOS % 3.3 % (0-4.5); HEMATOCRIT 33.6 % (32.4-45.2); HEMOGLOBIN 11.1 GM/dL (10.7-15.3); LYMPH % 26.7 % (8-40); MCH 27.4 pg (25.7-33.7); MEAN PLT VOLUME 9.8 fl (7.5-11.1); MONO % 11.7 % (3.8-10.2); NEUT % 57.8 % (42.8-82.8); RBC 4.05 M/mm3 (3.60-5.2); RDW 14.7 % (11.6-15.6); WHITE BLOOD COUNT 6.6 K/mm3 (4.0-10.0)
[2019-05-01 09:04] LABS: BILIRUBIN,TOTAL 0.9 mg/dL (0.2-1); BLOOD UREA NITROGEN 12.3 mg/dL (7-18); CALCIUM 8.2 mg/dL (8.5-10.1); CREATININE 0.9 mg/dL (0.55-1.3); POTASSIUM 4.1 mmol/L (3.5-5.1); TOT PROT 6.5 g/dl (6.4-8.2)
[2019-05-01 09:07] LABS: PLATELET COUNT 214 K/MM3 (134-434)
[2019-05-01] MEDS: ASPIRIN COATED 81 MG TABLET.EC PO SCH (10:04)
--- NOTE | 2019-05-01 11:47 | EKG ---
Test Reason : Blood Pressure : / mmHG Vent. Rate : 050 BPM Atrial Rate : 050 BPM P-R Int : 112 ms QRS Dur : 080 ms QT Int : 500 ms P-R-T Axes : 046 025 039 degrees QTc Int : 455 ms SINUS BRADYCARDIA LOW VOLTAGE QRS NONSPECIFIC T WAVE ABNORMALITY ABNORMAL ECG WHEN COMPARED WITH ECG OF 31-DEC-2017 22:23, QT HAS SHORTENED Confirmed by MECHELLE LEON MD ([id number]) on 05/01/2019 11:47:10 AM Referred By: Confirmed By:MECHELLE LEON MD
--- NOTE | 2019-05-01 12:00 | ECHO ---
Name: MARK MONTANA Exam:Adult Echocardiogram Study Date: 05/01/2019 07:35 AM Age: 48 yrs Reason For Study: Chest pain Height: 66 in Weight: 208 lb BSA: 2.0 m2 MMode/2D Measurements & Calculations IVSd: 0.88 cm Ao root diam: 2.7 cm LVIDd: 5.3 cm LA dimension: 3.5 cm LVIDs: 3.1 cm LVPWd: 0.87 cm EDV(Teich): 135.0 ml LVOT diam: 2.0 cm ESV(Teich): 38.7 ml Doppler Measurements & Calculations MV E max denys: 74.7 cm/sec Ao V2 max: 118.1 cm/sec MV A max denys: 54.3 cm/sec Ao max P.6 mmHg MV E/A: 1.4 MV dec time: 0.22 sec GABY(V,D): 2.3 cm2 LV V1 max P.0 mmHg MR max denys: 332.1 cm/sec LV V1 max: 86.8 cm/sec MR max P.2 mmHg TR max denys: 232.7 cm/sec PA V2 max: 76.0 cm/sec TR max P.7 mmHg PA max P.3 mmHg Med Peak E' Denys: 7.9 cm/sec PI Vmax: 89.6 cm/sec Med E/e': 9.5 Lat Peak E' Denys: 10.7 cm/sec Lat E/e': 7.0 Procedure A complete two-dimensional transthoracic echocardiogram was performed (2D, M-mode, Doppler and color flow Doppler). Left Ventricle The left ventricular size, thickness and function are normal. The left ventricular ejection fraction is normal. Ejection Fraction = 60-65%. The left ventricular wall motion is normal. Right Ventricle The right ventricle is normal in size and function. Atria Normal left and right atrial size and function. Mitral Valve There is trace mitral regurgitation. Tricuspid Valve There is mild tricuspid regurgitation. Right ventricular systolic pressure is normal. Aortic Valve The aortic valve is trileaflet. No hemodynamically significant valvular aortic stenosis. No aortic regurgitation is present. Pulmonic Valve There is no pulmonic valvular regurgitation. Great Vessels The aortic root is normal size. Pericardium/Pleura There is no pericardial effusion. Interpretation Summary The left ventricular size, thickness and function are normal The right ventricle is normal in size and function. There is trace mitral regurgitation. There is mild tricuspid regurgitation. MD Michael Hernández 05/01/2019 11:58 AM
--- NOTE | 2019-05-01 15:41 | PN ---
Progress Note, Physician - Current Medication List Current Medications: Active Medications Acetaminophen (Tylenol -) 650 mg PO Q6H PRN PRN Reason: HEADACHE Last Admin: 05/01/19 10:05 Dose: 650 mg Aspirin (Ecotrin -) 162 mg PO DAILY RUPERT Last Admin: 05/01/19 10:04 Dose: 162 mg - Objective Vital Signs: Vital Signs Temperature 98.4 F 05/01/19 14:00 Pulse Rate 55 L 05/01/19 14:00 Respiratory Rate 20 05/01/19 10:00 Blood Pressure 131/86 05/01/19 14:00 O2 Sat by Pulse Oximetry (%) 100 05/01/19 10:00 Labs: CBC, BMP 05/01/19 07:07 05/01/19 07:07 INR, PTT INR 1.07 (0.83-1.09) 04/30/19 12:30 Problem List - Problems (1) Chest pain Code(s): R07.9 - CHEST PAIN, UNSPECIFIED (2) Dizzy Code(s): R42 - DIZZINESS AND GIDDINESS
--- NOTE | 2019-05-01 15:59 | PN ---
Progress Note, Physician Chief Complaint: Presently comfortable History of Present Illness: This is a 48 year old female who is athletic, she does strenuous "boot camp" work outs.m She has no significant PMH and is on no medications. She presents now to the ED with chest pain and also reports dizziness. The dizziness began 1 week ago. Pt describes feeling lightheaded, denies room spinning. Pt denies LOC but states that she fell during one of her dizzy spells. Over the past 5 days pt has also begun to experience LT-sided chest pain that she describes as sharp/ pricking in sensation, 8-9/10 in severity, non radiating. Her symptoms have progressively worsened over the past few days and are now associated with shortness of breath on exertion, nausea, and diarrhea. She reports 3 episodes of loose, watery stools Head CT - negative for acute pathology Chest CT - negative for acute pathology EKG shows Sinus bradycardia at 49 BPM with low QRS voltage, normal intervals, normal axis, and NSSTTW changes. 05/01/19 Remains asymptomatic. - Current Medication List Current Medications: Active Medications Acetaminophen (Tylenol -) 650 mg PO Q6H PRN PRN Reason: HEADACHE Last Admin: 05/01/19 10:05 Dose: 650 mg Aspirin (Ecotrin -) 162 mg PO DAILY RUPERT Last Admin: 05/01/19 10:04 Dose: 162 mg - Objective Vital Signs: Vital Signs Temperature 98.4 F 05/01/19 14:00 Pulse Rate 55 L 05/01/19 14:00 Respiratory Rate 20 05/01/19 10:00 Blood Pressure 131/86 05/01/19 14:00 O2 Sat by Pulse Oximetry (%) 100 05/01/19 10:00 Constitutional: Yes: Well Nourished Eyes: Yes: WNL HENT: Yes: WNL Neck: Yes: WNL Cardiovascular: Yes: Regular Rate and Rhythm Respiratory: Yes: CTA Bilaterally Gastrointestinal: Yes: Soft Extremities: Yes: WNL Edema: No Neurological: Yes: Alert, Oriented Labs: CBC, BMP 05/01/19 07:07 05/01/19 07:07 INR, PTT INR 1.07 (0.83-1.09) 04/30/19 12:30 Assessment/Plan 48 year old female who is athletic, she does strenuous "boot camp" work outs.m She has no significant PMH and is on no medications. She presents now to the ED with chest pain and also reports dizziness. The dizziness began 1 week ago. Pt describes feeling lightheaded, denies room spinning. Pt denies LOC but states that she fell during one of her dizzy spells. Over the past 5 days pt has also begun to experience LT-sided chest pain that she describes as sharp/pricking in sensation, 8-9/10 in severity, non radiating. Her symptoms have progressively worsened over the past few days and are now associated with shortness of breath on exertion, nausea, and diarrhea. She reports 3 episodes of loose, watery stools Head CT - negative for acute pathology Chest CT - negative for acute pathology EKG shows Sinus bradycardia at 49 BPM with low QRS voltage, normal intervals, normal axis, and NSSTTW changes. Trop neg x1 TSH normal Lyme pending Echocardiogram Normal LV funciotn Obtain an exercise nuclear stress test as an outpatient She can be DC'd home from a cardiac standpoint.
--- NOTE | 2019-05-01 17:04 | DS ---
Physical Examination Vital Signs: Vital Signs Temperature 98.4 F 05/01/19 14:00 Pulse Rate 55 L 05/01/19 14:00 Respiratory Rate 20 05/01/19 10:00 Blood Pressure 131/86 05/01/19 14:00 O2 Sat by Pulse Oximetry (%) 100 05/01/19 10:00 HENT: Yes: Atraumatic Cardiovascular: Yes: Regular Rate and Rhythm Respiratory: Yes: CTA Bilaterally Gastrointestinal: Yes: Normal Bowel Sounds Extremities: Yes: WNL Edema: No Neurological: Yes: Alert, Oriented Labs: CBC, BMP 05/01/19 07:07 05/01/19 07:07 Discharge Summary Reason For Visit: CHEST PAIN Current Active Problems Chest pain (Acute) Dizzy (Acute) - Instructions Diet, Activity, Other Instructions: follow up cardiology as out patient Referrals: Golden Branham MD [Staff Physician] - ON STAFF,NOT [Primary Care Provider] - Disposition: HOME - Home Medications Comprehensive Discharge Medication List: Ambulatory Orders NK [No Known Home Medication] 04/30/19 reviewed cardiology note...cleared form his stand point to be dc
[2019-05-01 18:10] VITALS: BP 94/62; PULSE 52; TEMP 98.5
== END 2019-05-01 18:10 | disposition home or self-care (01) ==
LOC: JER 12:14 → JERBED 15:05 → J4W 20:12
PROVIDERS: ADMIT Internal Medicine; ATTEND Internal Medicine
PROC: 3E0333Z Introduction of Anti-inflammatory into Peripheral Vein, Percutaneous Approach (ICD-10-PCS; principal; 2019-04-30)
PROC: 3E033NZ Introduction of Analgesics, Hypnotics, Sedatives into Peripheral Vein, Percutaneous Approach (ICD-10-PCS; 2019-04-30)
PROC: 3E033GC Introduction of Other Therapeutic Substance into Peripheral Vein, Percutaneous Approach (ICD-10-PCS; 2019-04-30)
DX: R07.9 Chest pain, unspecified (principal); R00.1 Bradycardia, unspecified; R42 Dizziness and giddiness
CPT/HCPCS: 36415; 70450-TC; 71046-TC-FY; 71275-TC; 73140-TC-RT-FY; 80053; 81003; 82550; 82553; 83735; 84443; 84484; 84703; 85025; 85379; 85610; 86618; 87086; 87324; 87449; 93005; 93010; 93306-TC; 99285-25; G0378